=== PATIENT | female | born 1935 | race Caucasian/White ===

== ENCOUNTER 2019-05-11 07:25 | Observation (INO) ==
[~2019-05-11 07:25] MED LIST: Bacitracin 50,000 UNIT, Polymyxin B Sulfate 500,000 UNIT, Sodium Chloride IRRigation 1,... IR ONE
[2019-05-11] MEDS ORDERED: CeFAZolin Syr 2,000MG/20 ML 2,000 MG/20 ML SYRINGE IVPB ONE (08:04)
[2019-05-11] MEDS ORDERED: Ringers Solution, Lactated 1,000 ML IVC SCH (08:15)
[2019-05-11] MEDS ORDERED: Acetaminophen IV 1,000 MG/100 ML INFUS..BTL IVPB ONE (08:26)
[2019-05-11] MEDS ORDERED: Dexamethasone 4 MG/ML VIAL ONE (08:40)
[2019-05-11] MEDS ORDERED: *HR* Rocuronium Bromide 50 MG/5 ML VIAL ONE (08:40)
[2019-05-11] MEDS ORDERED: Ondansetron 4 MG/2 ML VIAL ONE (08:40)
[2019-05-11] MEDS ORDERED: Neostigmine Methylsulfate 3 MG/3 ML SYRINGE ONE (08:40)
[2019-05-11] MEDS ORDERED: Lidocaine -MPF 2% 2 ML VIAL ONE (08:40)
[2019-05-11] MEDS ORDERED: *HR* FentaNYL (PF) 100 MCG/2 ML VIAL ONE (08:41)
[2019-05-11] MEDS ORDERED: *HR* Propofol 200 MG/20 ML VIAL IVP ONE (08:41)
[2019-05-11] MEDS ORDERED: Lidocaine HCL 4 ML Topical Solution (Laryng-O-Jet Kit Sterile Pak) TP ONE (08:48)
[2019-05-11] MEDS ORDERED: Ondansetron 4 MG/2 ML VIAL IVP ONE (08:58)
[2019-05-11] MEDS ORDERED: EPHEDrine 50 MG/ML VIAL ONE (10:39)
[2019-05-11] MEDS: *HR* HYDROmorphone (PF) 1 MG/ML SYRINGE IVP PRN ×2 (12:32→12:41)
[2019-05-11] MEDS ORDERED: *HR* HYDROcodone/Acet 5/325 mg TABLET PO PRN (13:26)
[2019-05-11] MEDS ORDERED: Ondansetron 4 MG/2 ML VIAL IVP PRN (13:26)
[2019-05-11] MEDS ORDERED: Naloxone 0.4 MG/ML INJ IVP PRN (13:26)
[2019-05-11] MEDS ORDERED: tiZANidine 4 MG TABLET PO PRN (13:26)
[2019-05-11] MEDS: Ringers Solution, Lactated 1,000 ML IVC SCH ×2 (14:22→20:56)
[2019-05-11] MEDS: *HR* OxyCODONE Immed Rel 5 MG TABLET PO PRN ×2 (15:02→21:26)
[2019-05-11] MEDS: Insulin NPH/REG 70/30 100 UNIT/ML (x5UNIT) SQ SCH (18:11)
[2019-05-11] MEDS: ceFAZolin 1,000 MG in 0.9 % Sodium Chloride Mini Bag 100 ML IVPB SCH (18:13)
[2019-05-11] MEDS: Pregabalin 75 MG CAPSULE PO SCH (20:55)
[2019-05-12] MEDS: *HR* OxyCODONE Immed Rel 5 MG TABLET PO PRN ×2 (01:22→08:03)
[2019-05-12] MEDS: ceFAZolin 1,000 MG in 0.9 % Sodium Chloride Mini Bag 100 ML IVPB SCH (06:15)
[2019-05-12] MEDS: Insulin NPH/REG 70/30 100 UNIT/ML (x5UNIT) SQ SCH (08:02)
[2019-05-12] MEDS: Fenofibrate 54 MG TABLET PO SCH (08:02)
[2019-05-12] MEDS: Cholecalciferol (D-3) 1,000 UNIT (25MCG) TABLET PO SCH (08:03)
[2019-05-12] MEDS: amLODIPine 5 MG TABLET PO SCH (08:03)
[2019-05-12] MEDS: Pregabalin 75 MG CAPSULE PO SCH ×2 (08:03→22:09)
[2019-05-12] MEDS: Aspirin Enteric Coated 81 MG Tablet PO SCH (08:03)
[2019-05-12] MEDS: (Exemestane [Aromasin] 25 MG) PO SCH (08:04)
[2019-05-12] MEDS ORDERED: *HR* Dextrose 50 % in Water (Syg) 50 ML SYRINGE IVP PRN (16:30)
[2019-05-12] MEDS ORDERED: Dextrose Gel 15 GM/37.5 ML TUBE PO PRN ×2 (16:30)
[2019-05-12] MEDS ORDERED: D5% in Water 1,000 ML IVC PRN (16:30)
[2019-05-12 17:25] LABS: Bilirubin,Urine Negative (Negative); Blood,Urine Negative (Negative); Clarity,Urine Clear (Clear); Color,Urine Yellow (Yellow); Glucose,Urine (UA) 250 mg/dL (Normal); Ketones,Urine Negative (Negative); Leukocyte Esterase,Urine Negative (Negative); Nitrite,Urine Negative (Negative); Protein,Urine Negative (Neg-Trace); Specific Gravity,Urine 1.012 (1.010-1.025); Urobilinogen,Urine Normal (Normal)
[2019-05-12] MEDS: Acetaminophen 325 MG TABLET PO PRN (17:40)
[2019-05-12] MEDS: Insulin LISPRO 300 UNITS/3 ML VIAL SQ SCH ×2 (17:41)
[2019-05-12] MEDS: Ringers Solution, Lactated 1,000 ML IVC SCH (17:41)
[2019-05-12 17:56] LABS: Basophils % 0.1 %; Eosinophils % 0.1 %; Hematocrit 31.5 % (35.3-44.9); Immature Granulocytes % 0.4 % (0-4); Lymphocytes # 1.2 K/mcL (0.6-4.6); Lymphocytes % 17.4 %; Mean Corpuscular Hemoglobin 29.2 pg (28.0-33.3); Mean Corpuscular Volume 85.8 fL (83.0-100.0); Mean Platelet Volume 10.7 fL (9.4-12.4); Monocytes # 0.8 K/mcL (0.0-1.3); Monocytes % 10.7 %; Neutrophils # 5.1 K/mcL (1.6-8.9); Platelet Count 178 K/mcL (140-400); Red Blood Count 3.67 M/mcL (3.82-4.97); Red Cell Distribution Width 13.7 % (11.5-14.5); Segmented Neutrophils % 71.3 %; White Blood Count 7.1 K/mcL (4.3-11.1)
[2019-05-12 18:05] LABS: Hemoglobin 10.7 g/dL (11.5-15.4)
[2019-05-12 18:11] LABS: Albumin 3.8 g/dL (3.5-5.7); Albumin/Globulin Ratio 1.8 (1.1-2.2); Bilirubin,Total 0.3 mg/dL (0.3-1.0); Calcium 11.2 mg/dL (8.6-10.3); Globulin 2.1 g/dL (2.4-3.5); Magnesium 1.9 mg/dL (1.6-2.6); Potassium 3.9 mEq/L (3.5-5.1); Total Protein 5.9 g/dL (6.4-8.9)
[2019-05-12] MEDS: Insulin DETEMIR 100 UNIT/ML X5UNITS SQ SCH (22:22)
[2019-05-13] MEDS: Acetaminophen 325 MG TABLET PO PRN ×3 (03:06→16:57)
[2019-05-13 07:22] LABS: Basophils % 0.3 %; Eosinophils % 0.3 %; Hematocrit 30.8 % (35.3-44.9); Hemoglobin 10.1 g/dL (11.5-15.4); Immature Granulocytes % 0.7 % (0-4); Lymphocytes # 1.5 K/mcL (0.6-4.6); Mean Corpuscular HGB Conc 32.8 g/dL (31.6-35.5); Mean Corpuscular Hemoglobin 28.5 pg (28.0-33.3); Mean Platelet Volume 10.5 fL (9.4-12.4); Monocytes # 0.7 K/mcL (0.0-1.3); Neutrophils # 3.7 K/mcL (1.6-8.9); Platelet Count 154 K/mcL (140-400); Red Blood Count 3.54 M/mcL (3.82-4.97); Red Cell Distribution Width 13.6 % (11.5-14.5); Segmented Neutrophils % 62.7 %; White Blood Count 5.9 K/mcL (4.3-11.1)
[2019-05-13 07:41] LABS: Calcium 10.6 mg/dL (8.6-10.3); Magnesium 1.7 mg/dL (1.6-2.6); Potassium 4.2 mEq/L (3.5-5.1)
[2019-05-13 08:05] LABS: Folate 4.4 ng/mL (3.0-16.0)
[2019-05-13] MEDS: Pregabalin 75 MG CAPSULE PO SCH ×2 (08:20→20:30)
[2019-05-13] MEDS: Cholecalciferol (D-3) 1,000 UNIT (25MCG) TABLET PO SCH (08:20)
[2019-05-13] MEDS: Fenofibrate 54 MG TABLET PO SCH (08:21)
[2019-05-13] MEDS: Insulin LISPRO 300 UNITS/3 ML VIAL SQ SCH ×6 (08:21→16:58)
[2019-05-13] MEDS: (Exemestane [Aromasin] 25 MG) PO SCH (08:21)
[2019-05-13] MEDS: Aspirin Enteric Coated 81 MG Tablet PO SCH (08:21)
[2019-05-13] MEDS: amLODIPine 5 MG TABLET PO SCH (08:21)
[2019-05-13] MEDS: Ringers Solution, Lactated 1,000 ML IVC SCH ×3 (08:33→20:31)
[2019-05-13 09:39] LABS: Estimated Average Glucose 203 mg/dl
[2019-05-13] MEDS: Simethicone 80 MG TAB.CHEW PO PRN (12:41)
[2019-05-13] MEDS ORDERED: Acetaminophen IV 1,000 MG/100 ML INFUS..BTL IVPB ONE (16:57)
[2019-05-13] MEDS: Insulin DETEMIR 100 UNIT/ML X5UNITS SQ SCH (20:31)
[2019-05-14 04:41] LABS: Basophils % 0.4 %; Eosinophils % 0.8 %; Hematocrit 30.9 % (35.3-44.9); Hemoglobin 10.3 g/dL (11.5-15.4); Immature Granulocytes % 0.6 % (0-4); Lymphocytes # 1.3 K/mcL (0.6-4.6); Lymphocytes % 27.3 %; Mean Corpuscular HGB Conc 33.3 g/dL (31.6-35.5); Mean Corpuscular Hemoglobin 28.9 pg (28.0-33.3); Mean Corpuscular Volume 86.8 fL (83.0-100.0); Mean Platelet Volume 10.5 fL (9.4-12.4); Monocytes # 0.5 K/mcL (0.0-1.3); Monocytes % 10.4 %; Neutrophils # 2.9 K/mcL (1.6-8.9); Platelet Count 147 K/mcL (140-400); Red Blood Count 3.56 M/mcL (3.82-4.97); Red Cell Distribution Width 13.4 % (11.5-14.5); Segmented Neutrophils % 60.5 %; White Blood Count 4.7 K/mcL (4.3-11.1)
[2019-05-14 05:02] LABS: Magnesium 1.7 mg/dL (1.6-2.6); Potassium 4.3 mEq/L (3.5-5.1)
[2019-05-14] MEDS: Acetaminophen 325 MG TABLET PO PRN ×2 (06:34→16:47)
[2019-05-14] MEDS: Ringers Solution, Lactated 1,000 ML IVC SCH (06:40)
[2019-05-14] MEDS: Fenofibrate 54 MG TABLET PO SCH (07:57)
[2019-05-14] MEDS: Pregabalin 75 MG CAPSULE PO SCH (07:57)
[2019-05-14] MEDS: Cholecalciferol (D-3) 1,000 UNIT (25MCG) TABLET PO SCH (07:57)
[2019-05-14] MEDS: Aspirin Enteric Coated 81 MG Tablet PO SCH (07:57)
[2019-05-14] MEDS: Insulin LISPRO 300 UNITS/3 ML VIAL SQ SCH ×6 (07:58→16:47)
[2019-05-14] MEDS: amLODIPine 5 MG TABLET PO SCH (07:58)
[2019-05-14] MEDS: (Exemestane [Aromasin] 25 MG) PO SCH (07:59)
[2019-05-14 15:05] VITALS: BP 166/73
[2019-05-14] MEDS: Simethicone 80 MG TAB.CHEW PO PRN (16:47)
== END 2019-05-14 17:30 | disposition home health service (06) ==
LOC: SUATTDRO → SAMDAY 07:25 → 3NENU 07:25
PROVIDERS: ADMIT Internal Medicine; ATTEND Internal Medicine